=== PATIENT | male | born 1960 | race Hispanic/Latino ===

== ENCOUNTER 2020-11-09 05:35 | Emergency (ER) | payer BC ==
[~2020-11-09] VITALS: Ht 160 cm; Wt 78.9 kg
[2020-11-09 05:58] VITALS: BP 118/72
[2020-11-09 06:52] LABS: BASOPHILS % (AUTO) 0.5 % (0.0-5.0); EOSINOPHILS % (AUTO) 2.6 % (0.0-8.0); HEMATOCRIT 42.9 % (42-54); LYMPHOCYTES % (AUTO) 35.3 % (21.0-51.0); MEAN CORPUSCULAR HEMOGLOBIN 30.4 pg (27.0-33.0); MEAN CORPUSCULAR VOLUME 89.2 fL (79-99); MONOCYTES % (AUTO) 6.4 % (3.0-13.0); NEUTROPHILS % (AUTO) 54.7 % (40.0-77.0); PLATELET COUNT (AUTO) 171 K/uL (130-400); RED BLOOD CELL COUNT(AUTO) 4.81 MIL/uL (4.50-6.20); RED CELL DISTRIBUTION WIDTH 11.9 % (11.0-15.5); WHITE BLOOD COUNT (AUTO) 5.8 K/uL (4.8-10.8)
[2020-11-09] MEDS ORDERED: KETOROLAC 30MG VIAL (30MG/ML) ONE (06:53)
[2020-11-09 06:58] VITALS: BP 105/66
[2020-11-09] MEDS ORDERED: KETOROLAC 30MG VIAL (30MG/ML) IV SCH (07:00)
[2020-11-09 07:06] LABS: ALBUMIN 3.4 g/dL (3.5-5.0); BILIRUBIN,TOTAL 0.4 mg/dL (0.2-1.0); POTASSIUM 4.2 mmol/L (3.5-5.1); TOTAL PROTEIN, SERUM 6.5 g/dL (6.0-8.3)
[2020-11-09] MEDS ORDERED: MELO7.5T12 PO (07:48)
[2020-11-09] MEDS ORDERED: ORPH-43 PO (07:48)
[2020-11-09] MEDS ORDERED: LIDOP TP (07:48)
[2020-11-09 07:57] VITALS: BP 106/69
== END 2020-11-09 08:06 | disposition home or self-care (01) ==
LOC: EDH 05:35 → EDBD 05:35 → EDH 08:06
DX: M54.6 Pain in thoracic spine (principal); M62.838 Other muscle spasm; R11.0 Nausea; E11.9 Type 2 diabetes mellitus without complications
CPT/HCPCS: 36415; 71045; 80053; 83690; 84484; 85025; 93005 ×2; 96374; 99285; J1885

== ENCOUNTER 2022-10-17 02:46 | Emergency (ER) | payer BC ==
[~2022-10-17] VITALS: Ht 160 cm; Wt 77.1 kg
[~2022-10-17 02:46] MED LIST: LIDOP TP; MELO7.5T12 PO; ORPH100T4 PO
[2022-10-17] MEDS ORDERED: ASPIRIN 325MG TAB PO ONE (03:30)
[2022-10-17] MEDS ORDERED: DIAZEPAM 5 MG/ML 2 ML SYG IVP ONE (03:30)
[2022-10-17] MEDS ORDERED: MORPHINE 2 MG SYG IVP ONE (03:30)
[2022-10-17] MEDS ORDERED: IOHEXOL 350 MG/ML 100ML INFUS..BTL IV ONE (03:41)
[2022-10-17 03:54] LABS: BASOPHILS % (AUTO) 0.3 % (0.0-5.0); HEMATOCRIT 44.8 % (42-54); LYMPHOCYTES % (AUTO) 35.5 % (21.0-51.0); MEAN CORPUSCULAR HEMOGLOBIN 30.8 pg (27.0-33.0); MEAN CORPUSCULAR HGB CONC 35.5 g/dL (32.0-36.0); MEAN CORPUSCULAR VOLUME 86.8 fL (79-99); MONOCYTES % (AUTO) 6.6 % (3.0-13.0); PLATELET COUNT (AUTO) 176 K/uL (130-400); RED BLOOD CELL COUNT(AUTO) 5.16 MIL/uL (4.50-6.20); WHITE BLOOD COUNT (AUTO) 7.1 K/uL (4.8-10.8)
[2022-10-17 04:04] LABS: CREATININE 0.9 mg/dL (0.5-1.5); POTASSIUM 4.2 mmol/L (3.5-5.1)
[2022-10-17 04:15] LABS: ALBUMIN 3.6 g/dL (3.5-5.0); TOTAL PROTEIN, SERUM 6.6 g/dL (6.0-8.3)
[2022-10-17 07:02] VITALS: BP 116/78
== END 2022-10-17 07:08 | disposition home or self-care (01) ==
LOC: EDH 02:46
DX: M54.9 Dorsalgia, unspecified (principal); M25.512 Pain in left shoulder; E11.9 Type 2 diabetes mellitus without complications
CPT/HCPCS: 99284; 96374; 71275; 96375; 82550; 83874; 84484; 80053; 85025; 85378; 36415; 93005; J2270; J3360; Q9967